=== PATIENT | female | born 1960 | race Caucasian/White ===

== ENCOUNTER → 2021-04-30 14:01 | Outpatient (CLI) | payer BC, SELFPAY ==
--- NOTE | ~2021-04-30 | MM_ITS ---
EXAMINATION: MM screening hyun BI w racquel HISTORY: Screening TECHNIQUE: Craniocaudal and mediolateral oblique 3-D tomosynthesis images were obtained and synthetic 2-D images were generated. CAD analysis was submitted and interpreted. COMPARISON: Comparison to multiple prior studies sequentially, with oldest reviewed study dated 10/08. BREAST PARENCHYMAL COMPOSITION: The breasts are heterogeneously dense, which may obscure small masses . FINDINGS: There is no evidence of suspicious mass, calcification, or architectural distortion to sugg est malignancy in either breast. There has been no suspicious interval change. IMPRESSION: 1. No mammographic evidence of malignancy. 2. Recommend routine screening mammography in one year. BI-RADS Category 1: Negative Reviewed, dictated and finalized at location A.
== END ==
PROVIDERS: PCP Family Medicine Adolescent Medicine; Visit Provider Family Medicine Adolescent Medicine
DX: Z12.31 Encounter for screening mammogram for malignant neoplasm of breast (principal)
CPT/HCPCS: 77063; 77067

== ENCOUNTER → 2023-03-19 10:25 | Outpatient (CLI) | payer BC, SELFPAY ==
--- NOTE | ~2023-03-19 | MM_ITS ---
EXAMINATION: MM screening hyun BI w racquel HISTORY: Screening mammogram TECHNIQUE: Craniocaudal and mediolateral oblique 3-D tomosynthesis images were obtained and synthetic 2-D images were generated. CAD analysis was submitted and interpreted. COMPARISON: 04/30/2021, 09/11/2018 bilateral screening mammogram examinations BREAST PARENCHYMAL COMPOSITION: The breasts are heterogeneously dense, which may obscure small masses . FINDINGS: There is no evidence of suspicious mass, calcification, or architectural distortion to sugg est malignancy in either breast. There has been no suspicious interval change. IMPRESSION: 1. No mammographic evidence of malignancy. 2. Recommend routine screening mammography in one year. BI-RADS Category 1: Negative Reviewed, dictated and finalized at location A.
== END ==
PROVIDERS: PCP Family Medicine Adolescent Medicine; Visit Provider Physician Assistant
DX: Z12.31 Encounter for screening mammogram for malignant neoplasm of breast (principal)
CPT/HCPCS: 77063; 77067

== ENCOUNTER 2024-02-11 11:32 | Outpatient (CLI) | payer BC, SELFPAY ==
--- NOTE | ~2024-02-11 | XR_ITS ---
EXAMINATION: XR knee RT 3V DATE: 02/11/2024 11:46 INDICATION: Right knee pain. TECHNIQUE: 3 views of right knee including standing views were obtained. COMPARISON: None. FINDINGS: Bone alignment is normal. No fracture. There is mild tricompartmental osteoarthritis. There is a small knee joint effusion. IMPRESSION: 1. Mild right knee osteoarthritis. 2. Small right knee joint effusion. Reviewed, dictated and finalized at location E.
== END 2024-02-11 11:33 ==
LOC: MICIMG 11:37
PROVIDERS: PCP Nurse Practitioner Family; Visit Provider Nurse Practitioner Family
DX: M25.461 Effusion, right knee (principal); M17.11 Unilateral primary osteoarthritis, right knee
CPT/HCPCS: 73562

== ENCOUNTER 2024-05-23 13:34 | Outpatient (CLI) | payer BC, SELFPAY ==
--- NOTE | ~2024-05-23 | MR_ITS ---
EXAMINATION: MR knee RT wo con DATE: 05/23/2024 14:04 INDICATION: Medial right knee pain. Bilateral primary osteoarthritis right knee. TECHNIQUE: Magnetic resonance imaging (MRI) of the right knee was performed without intravenous contr ast. Sequences included axial PD-weighted FS FSE, coronal PD-weighted FSE and PD-weighted FS FSE, sag ittal PD-weighted FSE, and sagittal T2-weighted FS FSE. COMPARISON: Right knee radiographs 02/11/2024 FINDINGS: Medial compartment: Increased signal in medial meniscus does not definitely extend to an articular surface to indicate a tear. There is cartilage surface irregularity of tibial condyle and femoral condyle. There are tiny o steophytes. Lateral compartment: Lateral meniscus is normal. Lateral compartment cartilage is normal. Patellofemoral compartment: There is deep partial-thickness cartilage loss of patellar medial facet with mild subchondral edema-l terrence marrow signal intensity. Trochlear cartilage is normal. There are tiny osteophytes. Ligaments and tendons: The anterior and posterior cruciate ligaments are normal. There is edema around medial collateral lig ament, consistent with mild sprain. Lateral collateral ligament complex is normal. There is mild turner llar tendinopathy. Fluid: There is a small knee joint effusion. There is mild prepatellar and superficial infrapatellar bursiti s. IMPRESSION: 1. Moderate chondrosis of patellofemoral compartment and mild chondrosis of medial compartment. 2. Mild sprain of medial collateral ligament (grade 1). 3. Small knee joint effusion. Reviewed, dictated and finalized at location A. IMPRESSION: 1. Moderate chondrosis of patellofemoral compartment and mild chondrosis of med ial compartment. 2. Mild sprain of medial collateral ligament (grade 1). 3. Small knee joint effusion.
== END 2024-05-23 13:35 ==
PROVIDERS: PCP Nurse Practitioner Family; Visit Provider Physician Assistant Surgical
DX: M17.11 Unilateral primary osteoarthritis, right knee (principal); M25.461 Effusion, right knee; S83.411D Sprain of medial collateral ligament of right knee, subsequent encounter; X58.XXXD Exposure to other specified factors, subsequent encounter
CPT/HCPCS: 73721

== ENCOUNTER 2024-06-24 14:44 | Outpatient (CLI) | payer BC, SELFPAY ==
--- NOTE | ~2024-06-24 | MM_ITS ---
EXAMINATION: MM screening hyun BI w racquel HISTORY: Screening TECHNIQUE: Craniocaudal and mediolateral oblique 3-D tomosynthesis images were obtained and synthetic 2-D images were generated. CAD analysis was submitted and interpreted. COMPARISON: Comparison to multiple prior studies sequentially, with oldest reviewed study dated 10/08. BREAST PARENCHYMAL COMPOSITION: Not dense: There are scattered areas of fibroglandular density. FINDINGS: There is no evidence of suspicious mass, calcification, or architectural distortion to sugg est malignancy in either breast. There has been no suspicious interval change. IMPRESSION: 1. No mammographic evidence of malignancy. 2. Recommend routine screening mammography in one year. BI-RADS Category 1: Negative Reviewed, dictated and finalized at location B.
== END 2024-06-24 14:45 | disposition home or self-care (01) ==
LOC: MICIMG 14:45
PROVIDERS: PCP Nurse Practitioner Family; Visit Provider Nurse Practitioner Family
DX: Z12.31 Encounter for screening mammogram for malignant neoplasm of breast (principal)
CPT/HCPCS: 77063; 77067

== ENCOUNTER 2025-09-07 11:24 | Outpatient (CLI) | payer BC, SELFPAY ==
--- NOTE | ~2025-09-07 | MM_ITS ---
EXAMINATION: MM screening hyun BI w racquel HISTORY: Screening. TECHNIQUE: Craniocaudal and mediolateral oblique 3-D tomosynthesis images were obtained and synthetic 2-D images were generated. CAD analysis was submitted and interpreted. COMPARISON: 2023, 2022, and 2020. BREAST PARENCHYMAL COMPOSITION: Dense: The breasts are heterogeneously dense FINDINGS: No suspicious masses are seen. There are no suspicious calcifications. No unexplained architectural distortion is seen. There are no skin or nipple abnormalities identified. There is no adenopathy seen on the images submitted. IMPRESSION: No mammographic evidence to suggest malignancy is seen. The patient may return to screening mammography as per ACR guidelines. BI-RADS 1 - Negative. Reviewed, dictated and finalized at location C. R
== END 2025-09-07 11:25 | disposition home or self-care (01) ==
LOC: MICIMG 11:25
PROVIDERS: PCP Nurse Practitioner Family; Visit Provider Nurse Practitioner Family
DX: Z12.31 Encounter for screening mammogram for malignant neoplasm of breast (principal)
CPT/HCPCS: 77063; 77067